=== PATIENT | female | born 1995 | race Caucasian/White ===

== ENCOUNTER → 2022-10-05 08:45 | Outpatient (BNVA) | payer MEDICAID, SELFPAY | PROVIDERS: Visit Provider Nurse Practitioner Women's Health | DX: Z34.90 Encounter for supervision of normal pregnancy, unspecified, unspecified trimester (principal); Z32.00 Encounter for pregnancy test, result unknown | CPT/HCPCS: 80307; 81000; 81025; 84439; 84443; 84481; 85027; 86592; 86762; 86803; 86850; 86900; 87077; 87086; 87184; 87340; 87491; 87591; 87806; 88175 ==

== ENCOUNTER → 2022-10-14 07:55 | Outpatient (BNVA) | payer MEDICAID, SELFPAY | PROVIDERS: Visit Provider Nurse Practitioner Women's Health | DX: N39.0 Urinary tract infection, site not specified (principal) | CPT/HCPCS: 76805; 84315 ==

== ENCOUNTER 2023-03-01 16:22 | Outpatient (CLI) | payer MEDICAID, SELFPAY ==
[2023-03-01 16:22] VITALS: BMI 27.4
[2023-03-01 16:38] VITALS: BP 130/79; PULSE 86
[2023-03-01 16:53] VITALS: BP 127/83; PULSE 78
[2023-03-01 16:55] VITALS: RESP 17
[2023-03-01 17:08] VITALS: BP 127/83; PULSE 75
[2023-03-01 17:17] VITALS: BP 127/83; PULSE 75; RESP 17
== END 2023-03-01 17:17 | disposition home or self-care (01) ==
LOC: OPOB 16:26 → OBGYN 16:29
PROVIDERS: Visit Provider Obstetrics & Gynecology
DX: O16.9 Unspecified maternal hypertension, unspecified trimester (principal); Z3A.00 Weeks of gestation of pregnancy not specified
CPT/HCPCS: 36415; 59025; 80307; 82950; 84315; 85025; 87081; 99211

== ENCOUNTER 2023-03-04 15:05 | Inpatient (IN) | payer MEDICAID, SELFPAY ==
[2023-03-04] VITALS (19 sets, daily range): BP systolic 118–138; BP diastolic 63–83; PULSE 71–95; RESP 16–18; TEMP 36.3; BMI 27.6
[2023-03-04 16:19] LABS: Basophils % 0.2 %; Eosinophils # 0.1 10^3/uL (0.0-0.8); Eosinophils % 1.1 %; Hematocrit 34.2 % (36-47); Lymphocytes # 1.5 10^3/uL (0.8-4.8); Lymphocytes % 18.7 %; Mean Corpuscular Hemoglobin 29.1 pg (27-33); Mean Corpuscular Volume 88.1 fl (85-98); Mean Platelet Volume 13.4 fL (7.4-10.4); Monocytes # 0.7 10^3/uL (0.2-0.9); Monocytes % 8.8 %; Neutrophils # 5.73 10^3/uL (1.8-7.7); Nucleated Red Blood Cells % 0 %; Platelet Count 194 10^3/cmm (157-399); Red Blood Count 3.88 10^6/uL (3.85-5.65); Red Cell Distribution Width 15.4 % (12.1-15.1); White Blood Count 8.08 10^3/uL (3.29-11.43)
[2023-03-04 16:55] LABS: Amphetamines Screen Urine Negative (Negative); Barbiturates Screen Urine Negative (Negative); Benzodiazepines Screen Urine Negative (Negative); Cocaine Screen Urine Negative (Negative); Opiate Screen Urine Negative (Negative); PCP Screen Urine Negative (Negative); THC Screen Urine Positive (Negative)
[2023-03-04] MEDS: dextrose 5%-lactated ringers 1,000 ML 125 ML IV (17:08)
[2023-03-04] MEDS: ampicillin 2,000 MG in sodium chloride 0.9% (plus) 50 ML 100 MG IV (17:08)
[2023-03-04] MEDS: oxytocin 30 UNIT/500 ML BAG IV (17:09)
--- NOTE | 2023-03-04 23:01 | PM.DELIVERY ---
Delivery Note: Date of delivery: March 04, 2023 Pre-delivery diagnoses: Poor care Term Substance abuse Post-delivery diagnoses: Same Procedure: Spontaneous vaginal delivery Delivering Physician: Jimmy Angelo MD Estimated blood loss (mL): 300 Delivery: The patient was noted to be complete and pushing, so was placed in the dorsal lithotomy position, prepped and draped in the usual sterile fashion for a vaginal delivery. Pt. Noted to have epidural anesthesia. At 2226 the patient delivered a viable term 39 weeks male infant weighing 3180 g with scores of 8 and 9 at one and five minutes, respectively. The vertex was delivered spontaneously over intact perineum. The patient was asked to push and the head delivered spontaneously in the KESHAV position, over an intact perineum. A nuchal cord was checked and none notedThe anterior shoulder delivered easily and the posterior shoulder followed. The remainder of the was easily delivered and the oropharynx and nasopharynx was bulb suctioned. The was noted to have spontaneous cry and spontaneous movement of all four extremities. The cord was clamped x 2 and cut and noted to have 2 arteries and one vein. The was passed to the mother's abdomen where nursing personnel were in attendance. Cord blood sample was then obtained. The placenta delivered intact spontaneously and the uterus was explored. 20 units of Pitocin was placed in the IV bag to firm the uterus. Examination of the cervix and vaginal vault did not reveal any lacerations. A vaginal pack was then placed. Examination of the perineum showed second-degree laceration. The laceration was repaired with 2-0 Vicryl in the normal fashion in a running non locking fashion to reapproximate the laceration in layers. The vaginal pack was then removed. The patient tolerated this procedure well, and recovered in L&D with her in their LDR room. All sponge and needle counts were correct. Post-Delivery Status: Good and stable History History History 1 Term 1 0 Miscarriages/Ectopic 0 Living Children 1 Coding Level of Care Code Acute Code for Chg Fwd
[2023-03-04] MEDS: benzocaine-menthol 78 gm Canister 1 SPRAY TOPICAL (23:57)
[2023-03-04] MEDS: lanolin oint 7 gm 1 APPLIC TOPICAL (23:58)
[2023-03-05] VITALS (27 sets, daily range): BP systolic 90–136; BP diastolic 55–77; PULSE 67–128; RESP 16–20; TEMP 36.3–36.9; O2SAT 95–100; BMI 27.6
[2023-03-05] MEDS: HYDROcodone-acetaminophen 5-325 mg Tablet PO ×2 (00:36→12:37)
[2023-03-05] MEDS: tranexamic acid 1,000 MG/100 ML PREMIX 600 MG IV (03:47)
[2023-03-05] MEDS: lactated ringers 1,000 ML 999 ML IV (03:48)
[2023-03-05] MEDS: prenatal vitamin Capsule 1 CAP PO (10:06)
[2023-03-05] MEDS: docusate sodium 100 mg Capsule PO (10:06)
[2023-03-05] MEDS: ibuprofen 800 mg tablet PO ×2 (10:06→20:37)
[2023-03-05 12:24] LABS: Hematocrit 22.2 % (36-47); Mean Corpuscular Hemoglobin 29.1 pg (27-33); Mean Platelet Volume 13.9 fL (7.4-10.4); Platelet Count 162 10^3/cmm (157-399); Red Blood Count 2.44 10^6/uL (3.85-5.65); Red Cell Distribution Width 15.4 % (12.1-15.1); White Blood Count 14.96 10^3/uL (3.29-11.43)
--- NOTE | 2023-03-05 13:15 | PC.NURSE ---
Patient taken to main OR at this time
--- NOTE | 2023-03-05 13:27 | P.ANESASSM_ITS ---
Pre-Anesthetic Assessment Height/Weight: Height 1.57 m Weight 68.492 kg Temp Pulse Resp BP Pulse Ox O2 Del Method 97.4 F L 96 16 120/69 98 Room Air 03/04/23 15:01 03/05/23 10:06 03/05/23 10:06 03/05/23 10:06 03/05/23 06:15 03/05/23 10:06 Operation Date: 03/05/23 13:15 Proposed Procedures p Vaginal Laceration Repair(Not Applicable) - Jimmy Angelo MD Operation Date: 03/05/23 14:00 Proposed Procedures p Vaginal Laceration Repair Exploratory(Not Applicable) - Jimmy Angelo MD Familial anesthetic complications: None Was Beta Chloe taken within 24 hours: N/A Was Clonidine taken within 24 hours: N/A Last intake: 3 oreos at 11:00 - Dr Angelo aware, but continued bleeding with significant drop in Hgb, so decision was to proceed before 8 hrs Social Tobacco and No alcohol Exam alert, oriented x 3, clear to auscultation bilaterally and regular rate & rhythm Airway Mallampati: Class III Dentition: chipped Anesthetic Plan ASA status: 2E Anesthesia: Regional (specify below) Risk of > 500 ml blood loss (7ml/kg in children): No Medications/Allergies Home Medications Medication Instructions Recorded Confirmed Last Taken Type 1 tab PO DAILY 03/04/23 03/04/23 Unknown History Allergies Allergy/AdvReac Type Severity Reaction Status Date / Time tramadol Allergy ADR-Seizure Verified 03/04/23 16:06 Current Medications Generic Name Dose Route Start Last Admin Trade Name Freq PRN Reason Stop Dose Admin Hydrocodone Bitart/Acetaminophen 1 - 2 tab 03/04/23 23:03 03/05/23 12:37 Hydrocodone-Acetaminophen 5-325 Mg Tablet PO 2 tab Q6H PRN Administration MODERATE TO SEVERE PAIN Benzocaine 1 spray 03/04/23 23:03 03/04/23 23:57 Benzocaine-Menthol 78 Gm Canister TOPICAL 1 spray PRN PRN Administration PAIN Docusate Sodium 100 mg 03/05/23 09:00 03/05/23 10:06 Docusate Sodium 100 Mg Capsule PO 100 mg BID RANDOLPH Administration Lactated Ringer's 1,000 mls @ 999 mls/hr 03/04/23 15:05 03/05/23 03:48 Lactated Ringers IV 999 mls/hr .Q1H1M PRN Administration BLEEDING Tranexamic Acid 1,000 mg in 100 mls @ 600 mls/hr 03/04/23 15:05 03/05/23 03:47 Tranexamic Acid IV 600 mls/hr Q30M PRN Administration BLEEDING Dextrose/Lactated Ringer's 1,000 mls @ 125 mls/hr 03/04/23 15:15 03/04/23 17:08 Dextrose 5%-Lactated Ringers IV 125 mls/hr .Q8H RANDOLPH Administration Ampicillin Sodium 1,000 mg/ 50 mls @ 100 mls/hr 03/04/23 19:15 03/04/23 21:05 Sodium Chloride IV Not Given Q4H RANDOLPH Protocol Oxytocin 30 unit in 500 mls @ 1 mls/hr 03/04/23 16:45 03/04/23 19:15 Pitocin IV 5 milliunit/min .Q24H RANDOLPH 5 mls/hr Titration Protocol 1 MILLIUNIT/MIN Ropivacaine 100 mg in 50 mls @ 10 mls/hr 03/04/23 21:30 03/05/23 06:29 Naropin Syringe EPIDURAL Not Given .Q5H RANDOLPH Ibuprofen 800 mg 03/05/23 09:00 03/05/23 10:06 Ibuprofen 800 Mg Tablet PO 800 mg TID RANDOLPH Administration Lanolin 1 applic 03/04/23 15:05 03/04/23 23:58 Lanolin Oint 7 Gm TOPICAL 1 applic PRN PRN Administration DRYNESS Multivit/Folic Acid/Iron 1 cap 03/05/23 09:00 03/05/23 10:06 Vitamin Capsule PO 1 cap DAILY RANDOLPH Administration PFSH Anesthesia Family History Denies family history of Colon cancer Ovarian cancer Diabetes Heart disease Hyperlipidemia Breast cancer Hypertension Uterine cancer Thyroid disease Stroke Female Reproductive History : 2 Data Anesthesia 03/05/23 11:30 Short CBC 03/04/23 03/05/23 Range/Units 14:50 11:30 WBC 8.08 14.96 H (3.29-11.43) 10^3/uL Hgb 11.30 7.10 L D (11.27-16.99) g/dL Hct 34.2 L 22.2 L D (36-47) % MCV 88.1 91.0 (85-98) fl Plt Count 194 162 (157-399) 10^3/cmm Neut % (Auto) 71.0 % Neut # (Auto) 5.73 (1.8-7.7) 10^3/uL Blood Bank 03/04/23 14:50 Blood Type O Positive Rho(D) Type Rh positive Antibody Screen Negative Cardiac Studies: 2 No Data to Display
--- NOTE | 2023-03-05 13:29 | W.PM.OPSUD ---
Surgery/Procedure H&P Update DATE OF PROCEDURE: March 05, 2023 DATE H&P PERFORMED: 03/01/23 H&P UPDATE INFORMATION: I have reviewed H&P completed within last 30 days, I have examined patient prior to procedure and Changes to prior documentation as noted here (vaginal laceration/ vaginal bleeding) PLANNED PROCEDURE: Operation Date: 03/05/23 13:15 Proposed Procedures p Vaginal Laceration Repair(Not Applicable) - Jimmy Angelo MD Operation Date: 03/05/23 14:00 Proposed Procedures p Vaginal Laceration Repair Exploratory(Not Applicable) - Jimmy Angelo MD
[2023-03-05] MEDS: citric acid-sodium citrate 30 mL UDC PO (13:32)
[2023-03-05] MEDS: famotidine 20 mg/2 mL INJ IVP (13:33)
[2023-03-05] MEDS: metoclopramide 5 mg/mL SDV 2 mL 10 MG IVP (13:33)
--- NOTE | 2023-03-05 13:34 | P.PN_ITS ---
Subjective 2 Subjective: Mrs. Vega 27 y/o female status post spontaneous vaginal delivery complicated by second-degree laceration. Patient started with vaginal bleeding. Vitals/I&O/Wt Last Vital Signs Temp 97.4 F L 03/04/23 15:01 Pulse 96 03/05/23 10:06 Resp 16 03/05/23 10:06 BP 120/69 03/05/23 10:06 Pulse Ox 98 03/05/23 06:15 O2 Del Method Room Air 03/05/23 10:06 03/04/23 03/05/23 03/05/23 22:59 06:59 14:59 Intake Total 55.184 / 55.184 Output Total 350 / 350 Balance 55.184 / 55.184 -350 / -294.816 Weight last 48 hrs Weight 68.492 kg Weight 68.492 kg Physical Exam 2 Narrative: GA; alert and oriented x 3 HEENT: normal Breasts: engorged Nipples - skin intact Lungs; clear to auscultation Heart: regular rhythm, no murmurs. Abd: Appropriately tender. BS+. Uterine fundus below umbilicus. No Fundal Tenderness. Perineum: Vaginal bleeding, labial laceration bleeding. Extremities: no edema, no cyanosis, no tenderness. Data 03/05/23 11:30 A&P Assessment and plan (1) Term delivered: Mrs. Vega 27 y/o female status post spontaneous vaginal delivery complicated by second-degree laceration. Patient started with vaginal bleeding again after repair of labial laceration bleeding. Patient was counseled regarding exploration of vaginal pearson to determine origin of bleeding. Hemoglobin had decreased to 7. Plan Vaginal laceration repair/exploration under anesthesia recommended. Attestations 2 Medical Necessity Statement*: Professional opinion per admitting diagnosis Coding Level of Care Code Acute Code for Chg Fwd Diagnoses Term delivered O80
[2023-03-05] MEDS: lidocaine-epi 2% 20 mL INJ 10 ML INJECTION (14:36)
--- NOTE | 2023-03-05 14:43 | PM.OP ---
Operative Report Date of procedure: March 05, 2023 Pre-op diagnosis: vaginal bleeding. Vaginal laceration Post-op diagnosis: Same Post-op findings: Left sulcus vaginal laceration Procedure done: Vaginal laceration repair Surgeon: Jimmy Angelo MD Estimated blood loss (mL): 50 IV fluids (mL): 600 Urine output (mL): 100 Procedure: The patient is a 27-year-old who delivered via vaginal delivery. At the end of this particular delivery, approximately 300 mL of blood loss was noted after second-degree perineal laceration repaired. The patient was under close observation after the delivery. A large clot was extravasated at that time with fundal pressure and a small area of membranes was noted in the clot. The uterus, however, was firm. A CBC that was drawn revealed a hemoglobin in the 7.7 range, as this was an acute reading, we are suspecting the actual hemoglobin is much lower. At this point it was decided to bring the patient back for an emergent vaginal exam with the suspicion for possible retained products secondary to the entrapped placenta. Also of concern was possible cervical laceration or vaginal alceration. Full evaluation of the cervix at bedside was limited. The patient was taken to the OR, prepped and draped in a normal sterile fashion. Betadine was used to sterilize the area. She had already been receiving ampicillin secondary to low-grade fevers of 100.8 during labor. A weighted speculum was placed and good visualization of the area was noted. It was at this time when a left side vaginal culcus laceration was noted. It was currently with slow bleeding at this time, however, it was clear that this needed to be repaired and 2-0 Vicryl on a SH needle was used to repair the laceration. The cervix was patent and dilatation and curettage was undertaken and no retained products were acquired from the curettage. It was determined at this point that the bleeding episode that she encountered was secondary to the lacerations which were repaired at that time. The patient tolerated the procedure well. She was started on her first units of packed red blood cells when she was taken back to the PACU and she will be followed closely in the OB de jesus overnight. No uterine bleeding was noted during the procedure. The patient will continue with ampicillin times 3 more doses. She will be followed closely for any further bleeding issues. A repeat CBC will be done 4 hours after the 2nd unit of packed red blood cells.
--- NOTE | 2023-03-05 14:45 | ANE.PACU2 ---
Inpatient post-anesthesia follow up: Airway intact: Yes Vital signs: Temperature 98.0 F Pulse Rate 74 Respiratory Rate 16 Blood Pressure 128/74 Pulse Oximetry 99 Oxygen Delivery Me thod Room Air Oxygen Flow Rate Fraction of Inspir ed Oxygen Hydration adequate: Yes Nausea and vomiting: No Pain level: 1 Mental status: Baseline
[2023-03-06] MEDS: HYDROcodone-acetaminophen 5-325 mg Tablet PO ×2 (02:09→13:41)
[2023-03-06 02:25] LABS: Hematocrit 26.9 % (36-47); Mean Corpuscular HGB Conc 33.1 g/dL (30-55); Mean Corpuscular Volume 87.6 fl (85-98); Mean Platelet Volume 13.3 fL (7.4-10.4); Platelet Count 150 10^3/cmm (157-399); Red Blood Count 3.07 10^6/uL (3.85-5.65); Red Cell Distribution Width 15.8 % (12.1-15.1); White Blood Count 12.82 10^3/uL (3.29-11.43)
[2023-03-06 05:33] VITALS: BP 123/84; PULSE 89; RESP 15; TEMP 36.7; O2SAT 99
[2023-03-06 07:39] LABS: Hematocrit 25.1 % (36-47); Mean Corpuscular HGB Conc 33.5 g/dL (30-55); Mean Corpuscular Hemoglobin 29.1 pg (27-33); Mean Corpuscular Volume 86.9 fl (85-98); Mean Platelet Volume 13.7 fL (7.4-10.4); Platelet Count 140 10^3/cmm (157-399); Red Blood Count 2.89 10^6/uL (3.85-5.65); Red Cell Distribution Width 16.3 % (12.1-15.1); White Blood Count 10.61 10^3/uL (3.29-11.43)
[2023-03-06] MEDS: docusate sodium 100 mg Capsule PO (09:02)
[2023-03-06] MEDS: ibuprofen 800 mg tablet PO ×2 (09:02→13:42)
[2023-03-06] MEDS: prenatal vitamin Capsule 1 CAP PO (09:02)
[2023-03-06] MEDS: nicotine 14 mg Patch 1 PATCH TRANSDERMA (10:31)
--- NOTE | 2023-03-06 12:34 | P.DS_ITS ---
Discharge Providers [employer] Date of Admission: 03/04/23 15:05 Date of Discharge: 03/06/23 Attending Provider at Admission: Jimmy Angelo MD Attending Provider at Discharge: Melecio Logan MD Diagnoses at Discharge Discharge Diagnosis (1) Term delivered: Status: Acute Reason for Visit Reason for Visit: Induction Hospital Course Hospital Course Ms. Vega is a 27 year old patient with an LMP of 05/27/2022, [place] 03/03/2022, was admitted for elective induction at 40 0/7 weeks. Upon admission she had a favorable ripen cervix and she was started with oxytocin ainduction. She progressed to have a rapid progression of labor and had a spontaneous vaginal delivery complicated by second-degree perineal laceration wound which repair adequately and adequate blood loss estimated at 300 mL. During observation at night she started with significant vaginal bleeding TXA was administered. Labia edema was noted. Continue on observation but slow bleeding continues significantly. The decision was made to take the patient to the OR to determine where bleeding was coming from. She received spinal anesthesia and he was noted to have an lex left vaginal sulcus laceration that was slowly bleeding. The laceration was repaired in a running locked fashion with 3-0 Vicryl. The bleeding was brought under control. Her hemoglobin had decreased significantly and she was given 2 units of packed red blood cells. Overnight observation was uneventful. Ambulating without difficulty. Tolerating diet well. The patient refers she is feeling much better.. She is afebrile hemodynamically stable day 2. She was counseled regarding pelvic rest for 6 weeks (no sex, no tampons, no vaginal douches). Return to the emergency room if any fever, increased bleeding or pain. Information Peripartum Data: Infant Delivery Method: Vaginal Physical Exam Narrative: GA; alert and oriented x 3 HEENT: normal Breasts: engorged Nipples - skin intact Lungs; clear to auscultation Heart: regular rhythm, no murmurs. Abd: Appropriately tender. BS+. Uterine fundus below umbilicus. No Fundal Tenderness. Perineum: normal lochia. Extremities: no edema, no cyanosis, no tenderness. Urinary Catheter Management: Adam: Cath Placed During This Visit: yes, but has since been removed by the nurse Urinary Catheter Date of Insertion: 03/05/23 Urinary Catheter Time of Insertion: 14:02 Date Urinary Catheter Removed: 03/05/23 Time Urinary Catheter Discontinued: 14:41 History History History 1 Term 1 0 Miscarriages/Ectopic 0 Living Children 1 Discharge Data Studies Completed and Pending Laboratory Results WBC 10.61 10^3/uL (3.29-11.43) 03/06/23 07:15 RBC 2.89 10^6/uL (3.85-5.65) L 03/06/23 07:15 Hgb 8.40 g/dL (11.27-16.99) L 03/06/23 07:15 Hct 25.1 % (36-47) L 03/06/23 07:15 MCV 86.9 fl (85-98) 03/06/23 07:15 MCH 29.1 pg (27-33) 03/06/23 07:15 MCHC 33.5 g/dL (30-55) 03/06/23 07:15 RDW 16.3 % (12.1-15.1) H 03/06/23 07:15 Plt Count 140 10^3/cmm (157-399) L 03/06/23 07:15 MPV 13.7 fL (7.4-10.4) H 03/06/23 07:15 Neut % (Auto) 71.0 % 03/04/23 14:50 Lymph % (Auto) 18.7 % 03/04/23 14:50 Reeves % (Auto) 8.8 % 03/04/23 14:50 Eos % (Auto) 1.1 % 03/04/23 14:50 Baso % (Auto) 0.2 % 03/04/23 14:50 Neut # (Auto) 5.73 10^3/uL (1.8-7.7) 03/04/23 14:50 Lymph # (Auto) 1.5 10^3/uL (0.8-4.8) 03/04/23 14:50 Reeves # (Auto) 0.7 10^3/uL (0.2-0.9) 03/04/23 14:50 Eos # (Auto) 0.1 10^3/uL (0.0-0.8) 03/04/23 14:50 Baso # (Auto) 0.0 10^3/uL (0.0-0.1) 03/04/23 14:50 Nucleated RBC % (auto) 0 % 03/04/23 14:50 Nucleated RBCs # 0.0 /100WBC 03/04/23 14:50 Urine Opiates Screen Negative ng/mL (Negative) 03/04/23 14:40 Ur Barbiturates Screen Negative ng/mL (Negative) 03/04/23 14:40 Ur Phencyclidine Scrn Negative ng/mL (Negative) 03/04/23 14:40 Ur Amphetamines Screen Negative ng/mL (Negative) 03/04/23 14:40 U Benzodiazepines Scrn Negative ng/mL (Negative) 03/04/23 14:40 Urine Cocaine Screen Negative ng/mL (Negative) 03/04/23 14:40 U Marijuana (THC) Screen Positive ng/mL (Negative) H 03/04/23 14:40 Blood Type O Positive 03/04/23 14:50 Rho(D) Type Rh positive 03/04/23 14:50 Antibody Screen Negative 03/04/23 14:50 Crossmatch See Detail 03/04/23 14:50 Vitals Last Vital Signs Temp 98.1 F 03/06/23 05:33 Pulse 89 03/06/23 05:33 Resp 15 03/06/23 05:33 BP 123/84 03/06/23 05:33 Pulse Ox 99 03/06/23 05:33 O2 Del Method Room Air 03/06/23 05:33 Results Labs OB ([facility]): Blood Type O Positive 03/04/23 Antibody Screen Negative 03/04/23 Hct 25.1 % (36-47) L 03/06/23 Hgb 8.40 g/dL (11.27-16.99) L 03/06/23 Rho(D) Type Rh positive 03/04/23 Plt Count 140 10^3/cmm (157-399) L 03/06/23 Hep Bs Antigen Non-reactive (Nonreactive) 10/05/22 Hepatitis C Antibody Non-reactive (Nonreactive) 10/05/22 Rubella IgG Antibody 304.8 IU/mL (0.0-10.0) H 10/05/22 RPR Nonreactive (Nonreactive) 10/05/22 HIV 1&2 Ab & HIV 1 Ag Non-reactive (Non-Reactiv) 10/05/22 TSH 1.37 uIU/mL (0.27-4.20) 10/05/22 Free T4 1.07 ng/dL (0.82-1.77) 10/05/22 C.trachomatis RNA (TMA) Not detected (NOT DETECTED) N.gonorrhoeae RNA (TMA) Not detected (NOT DETECTED) T. vaginalis Amp RNA Detected (NOT DETECTED) A 10/05/22 Chlamydia/GC Comment See note 10/05/22 Cystic Fibrosis Screen Negative 10/12/22 Gest Glucose Tolerance 104 mg/dL (70-139) 03/01/23 HCG, Qual Positive (Negative) H 10/05/22 Urine Opiates Screen Negative ng/mL (Negative) 03/04/23 Ur Barbiturates Screen Negative ng/mL (Negative) 03/04/23 Ur Phencyclidine Scrn Negative ng/mL (Negative) 03/04/23 Ur Amphetamines Screen Negative ng/mL (Negative) 03/04/23 U Benzodiazepines Scrn Negative ng/mL (Negative) 03/04/23 Urine Cocaine Screen Negative ng/mL (Negative) 03/04/23 U Marijuana (THC) Screen Positive ng/mL (Negative) H Micro Urine Specimen 10/05/22 Pap Smear Interpret See note 10/05/22 Discharge Plan Discharge Patient Disposition: Home Condition: Stable Prescriptions: New acetaminophen 325 mg capsule 325 mg PO Q4H PRN (Reason: fever or pain) Qty: 60 0RF ferrous sulfate [Iron (ferrous sulfate)] 325 mg (65 mg iron) tablet 325 mg PO BID Qty: 60 0RF docusate sodium [Colace] 100 mg capsule 100 mg PO BID Qty: 60 0RF ibuprofen 800 mg tablet 800 mg PO TID PRN (Reason: pain) Qty: 60 0RF Continued 1 tab PO DAILY Discharge Orders: Discharge Order (Routine); Ordered 03/06/23 Ordered By: Jimmy Angelo Discharge Diet: Usual diet and Soft Mechanical Discharge Activity: Limit activity as instructed Patient Instructions: Caring for Your Baby (GEN), Bleeding (GEN), Care For Your Absorbable Stitches (GEN), Vaginal Delivery (GEN), Your [place]'s Appearance (GEN), Opioid Safety Activity Restrictions/Additional Instructions: 1. Please call [facility] on next working day to make your post-operative appointment in 2 weeks. 2. Please stay home until you come back to the clinic on first post- hospatilization check up. 3. Please follow instructions on your medications CAREFULLY. 4. If you have abdominal incision, do not cover it unless dressing is necessary because of drainage. OK to shower, but avoid bath. Leave steri-strips until they fall off. If they are still on one week after surgery, you may remove them. 5. If you had vaginal surgery or vaginal repair, Dr. Angelo may instruct you to take SITZ bath. 6. Yellow, blood tinged odorous vaginal discharge is usually normal after h ysterectomy or vaginal surgeries. 7. No SEXUAL INTERCOURSE, tampons, or douches until you are completely released from the post-operative care. 8. Avoid constipation by eating right and maybe using some Metamucil or Milk of Magnesia. 9. All prescription refills are given during the working hours. Please do no wait till it runs out. Call the clinic at [phone] before your medication runs out. The clinic will get in touch with your doctor to prescribe medications if necessary. 10. Please remain within 40 mile radius from our hospital because emergencies do happen now and then during the post-operative period. 11. If you have stairs at home, take one step at a time slowly and minimize the number of trips. It helps to stay in one floor for the next few days. No lifting except what you can lift by one hand until you are released from the post-operative care. 12. Driving is discouraged until you are well healed. It may be 3-4 weeks before you feel strong enough to drive. You should be able to turn and look through the rear window without pain and you should be able to push the brake pedal very hard without pain before you drive. No fast rules, but SAFETY should be your primary concern. DO NOT drive if you are on sedating medications such as narcotics. 13. Call the clinic (during working hours) to make urgent appointment or go to the Emergency room, if any of the following occurs: i. Vaginal bleeding becomes heavy, more than a period. ii. Incision becomes red and sore, or drains pus. iii. Your TEMPERATURE is over 100.4F or you have chill. iv. IV site becomes red and swollen (a little ``knot?? is usually OK) v. Persistent nausea and vomiting vi. Persistent constipation or diarrhea vii. Rash or allergic reaction to medications. Discharge Attestations [employer] Time Spent in Discharge Care*: greater than 30 min Coding Level of Care Code Acute Code for Chg Fwd Diagnoses Term delivered O80
[2023-03-06 14:00] VITALS: BP 128/74; PULSE 74; RESP 16; TEMP 36.7
== END 2023-03-06 14:00 | disposition home or self-care (01) | DRG 806 ==
LOC: OPOB 03-05 06:55 → OBGYN 03-05 06:55
PROVIDERS: Admitting Provider Obstetrics & Gynecology; Visit Provider Obstetrics & Gynecology
PROC: 0UQG0ZZ Repair Vagina, Open Approach (ICD-10-PCS; principal; 2023-03-05 13:15)
DX: O99.334 Smoking (tobacco) complicating childbirth (principal); O75.2 Pyrexia during labor, not elsewhere classified; Z37.0 Single live birth; R71.0 Precipitous drop in hematocrit; O71.4 Obstetric high vaginal laceration alone; O72.1 Other immediate postpartum hemorrhage; F17.200 Nicotine dependence, unspecified, uncomplicated; O70.1 Second degree perineal laceration during delivery; Z3A.40 40 weeks gestation of pregnancy
CPT/HCPCS: 36415; 36430; 59025; 59409; 80306; 85025; 85027; 86850; 86900; 86920; 96374; 99211; J0290; J0330; J1100; J2250; J2405; J2590; J2704; J2765; J3010; J3490; J7120; J7121; P9016